=== PATIENT | female | born 1945 | race Caucasian/White ===

== ENCOUNTER → 2023-05-21 10:09 | Outpatient (REF) | payer MEDICARE, OTHER, SELFPAY ==
[2023-05-21 11:22] LABS: % Eosinophils 4.9 % (0-6); % Immature Granulocytes 0.3 % (0-0.5); % Lymphocytes 27.8 % (20.5-51.1); % Monocytes 9.9 % (1.7-9.3); % Neutrophils 56.1 % (42.2-75.2); Absolute Basophils 0.1 10^3/uL (0-0.2); Absolute Eosinophils 0.3 10^3/uL (0-0.7); Absolute Lymphocytes 1.6 10^3/uL (1.2-3.4); Absolute Monocytes 0.6 10^3/uL (0.1-0.6); Absolute Neutrophils 3.3 10^3/uL (1.4-6.5); Hematocrit 38.6 % (37.0-47.0); Hemoglobin 13.1 g/dL (12.0-16.0); Mean Corp Hgb Conc. 33.9 g/dL (33.0-37.0); Mean Corpuscular Hgb 29.8 pg (27.0-31.0); Mean Corpuscular Volume 87.9 fL (81.0-99.0); Mean Platelet Volume 10.2 fL (7.4-10.4); Nucleated Red Blood Cells % 0 %; Platelet Count 297 10^3/uL (130-400); Red Blood Cell Count 4.39 10^6/uL (4.20-5.40); Red Cell Dist. Width 12.8 % (11.5-14.5); White Blood Cell Count 5.9 10^3/uL (4.8-10.8)
[2023-05-21 12:34] LABS: ALT (SGPT) 15 U/L (0-35); AST (SGOT) 25 U/L (14-36); Albumin 4.3 g/dl (3.5-5.0); Alkaline Phosphatase 98 U/L (38-126); Blood Urea Nitrogen 19 mg/dl (7-17); Calcium 10.1 mg/dl (8.4-10.2); Carbon Dioxide 29 mmol/L (22-30); Chloride 99 mmol/L (98-107); Glucose 89 mg/dl (70-99); HDL Cholesterol 68 mg/dl; LDL Cholesterol, Calculated 88 mg/dl; Sodium 134 mmol/L (135-145); Total Bilirubin 0.7 mg/dl (0.2-1.3); Total Cholesterol 170 mg/dl (50-199); Total Protein 7.1 g/dl (6.3-8.2); Triglyceride 72 mg/dl (10-149); Very Low Density Lipoprotein 14 mg/dl (0-30); eGFR > 60.00
[2023-05-21 12:41] LABS: TSH 7.08 uIU/ml (0.47-4.68)
== END ==
LOC: REG 10:09
PROVIDERS: ATTENDING PHYSICIAN Internal Medicine
DX: E03.9 Hypothyroidism, unspecified (principal); I35.0 Nonrheumatic aortic (valve) stenosis; R53.83 Other fatigue; E78.5 Hyperlipidemia, unspecified; I35.1 Nonrheumatic aortic (valve) insufficiency; Z00.00 Encounter for general adult medical examination without abnormal findings; I10 Essential (primary) hypertension
CPT/HCPCS: 36415; 80053; 80061; 84443; 85025

== ENCOUNTER → 2023-09-23 11:03 | Outpatient (REF) | payer MEDICARE, OTHER, SELFPAY | LOC: REG 11:03 | PROVIDERS: ATTENDING PHYSICIAN Internal Medicine | DX: R79.89 Other specified abnormal findings of blood chemistry (principal); E03.9 Hypothyroidism, unspecified | CPT/HCPCS: 36415; 84443 ==

== ENCOUNTER → 2024-04-02 12:38 | Outpatient (REF) | payer MEDICARE, OTHER, SELFPAY ==
[2024-04-02 13:11] LABS: % Basophils 0.4 % (0-2); % Eosinophils 0.3 % (0-6); % Immature Granulocytes 0.3 % (0-0.5); % Lymphocytes 14.5 % (20.5-51.1); % Monocytes 12.1 % (1.7-9.3); % Neutrophils 72.4 % (42.2-75.2); Absolute Lymphocytes 1.1 10^3/uL (1.2-3.4); Absolute Monocytes 0.9 10^3/uL (0.1-0.6); Absolute Neutrophils 5.5 10^3/uL (1.4-6.5); Hemoglobin 12.4 g/dL (12.0-16.0); Mean Corp Hgb Conc. 33.5 g/dL (33.0-37.0); Mean Corpuscular Hgb 29.3 pg (27.0-31.0); Mean Corpuscular Volume 87.5 fL (81.0-99.0); Mean Platelet Volume 9.7 fL (7.4-10.4); Nucleated Red Blood Cells % 0 %; Platelet Count 368 10^3/uL (130-400); Red Blood Cell Count 4.23 10^6/uL (4.20-5.40); White Blood Cell Count 7.6 10^3/uL (4.8-10.8)
[2024-04-02 13:36] LABS: D-Dimer 1.33 ug/mlFEU (0.00-0.50)
[2024-04-02 13:41] LABS: Troponin I < 0.012 ng/ml
== END ==
LOC: RAD 12:38
PROVIDERS: ATTENDING PHYSICIAN Hospitalist; FAMILY PHYSICIAN Internal Medicine
DX: R05.3 Chronic cough (principal); M79.601 Pain in right arm; D68.51 Activated protein C resistance
CPT/HCPCS: 36415; 71046; 84484; 85025; 85379

== ENCOUNTER → 2024-07-15 10:56 | Outpatient (REF) | payer MEDICARE, OTHER, SELFPAY | LOC: RCS 10:56 | PROVIDERS: ATTENDING PHYSICIAN Internal Medicine Cardiovascular Disease; FAMILY PHYSICIAN Internal Medicine | DX: I35.0 Nonrheumatic aortic (valve) stenosis (principal) | CPT/HCPCS: 93306 ==

== ENCOUNTER → 2024-08-20 10:25 | Outpatient (REF) | payer MEDICARE, OTHER, SELFPAY ==
[2024-08-20 10:57] LABS: % Basophils 0.8 % (0-2); % Eosinophils 3.1 % (0-6); % Immature Granulocytes 0.7 % (0-0.5); % Lymphocytes 20.8 % (20.5-51.1); % Monocytes 8.8 % (1.7-9.3); % Neutrophils 65.8 % (42.2-75.2); Absolute Basophils 0.1 10^3/uL (0-0.2); Absolute Eosinophils 0.2 10^3/uL (0-0.7); Absolute Immature Granulocytes 0.1 10^3/uL (0-0.05); Absolute Lymphocytes 1.6 10^3/uL (1.2-3.4); Absolute Monocytes 0.7 10^3/uL (0.1-0.6); Hemoglobin 13.4 g/dL (12.0-16.0); Mean Corp Hgb Conc. 33.5 g/dL (33.0-37.0); Mean Corpuscular Hgb 29.6 pg (27.0-31.0); Mean Corpuscular Volume 88.3 fL (81.0-99.0); Nucleated Red Blood Cells % 0 %; Platelet Count 269 10^3/uL (130-400); Red Blood Cell Count 4.53 10^6/uL (4.20-5.40); White Blood Cell Count 7.5 10^3/uL (4.8-10.8)
[2024-08-20 11:35] LABS: ALT (SGPT) 22 U/L (0-35); AST (SGOT) 23 U/L (14-36); Albumin 4.3 g/dl (3.5-5.0); Alkaline Phosphatase 94 U/L (38-126); Blood Urea Nitrogen 21 mg/dl (7-17); Calcium 10.1 mg/dl (8.4-10.2); Carbon Dioxide 29 mmol/L (22-30); Chloride 101 mmol/L (98-107); Glucose 96 mg/dl (70-99); HDL Cholesterol 78 mg/dl; LDL Cholesterol, Calculated 104 mg/dl; Sodium 136 mmol/L (135-145); Total Bilirubin 0.6 mg/dl (0.2-1.3); Total Cholesterol 194 mg/dl (50-199); Triglyceride 60 mg/dl (10-149); Very Low Density Lipoprotein 12 mg/dl (0-30); eGFR > 60.00
== END ==
LOC: REG 10:25
PROVIDERS: ATTENDING PHYSICIAN Internal Medicine
DX: I10 Essential (primary) hypertension (principal)
CPT/HCPCS: 36415; 80053; 80061; 84443; 85025

== ENCOUNTER → 2024-09-01 11:57 | Outpatient (REF) | payer MEDICARE, OTHER, SELFPAY | LOC: RCS 11:57 | PROVIDERS: ATTENDING PHYSICIAN Student in an Organized Health Care Education/Training Program; FAMILY PHYSICIAN Internal Medicine | DX: I25.10 Atherosclerotic heart disease of native coronary artery without angina pectoris (principal) | CPT/HCPCS: 78452; 93017; A9500 ==

== ENCOUNTER → 2024-09-30 11:01 | Outpatient (REF) | payer MEDICARE, OTHER, SELFPAY ==
[2024-09-30 13:42] LABS: TSH 21.90 uIU/ml (0.47-4.68)
== END ==
LOC: REG 11:01
PROVIDERS: ATTENDING PHYSICIAN Internal Medicine
DX: E03.9 Hypothyroidism, unspecified (principal)
CPT/HCPCS: 36415; 84443

== ENCOUNTER → 2024-11-19 11:40 | Outpatient (REF) | payer MEDICARE, OTHER, SELFPAY | LOC: RAD 11:40 | PROVIDERS: ATTENDING PHYSICIAN Internal Medicine Critical Care Medicine; FAMILY PHYSICIAN Internal Medicine | DX: R91.1 Solitary pulmonary nodule (principal) | CPT/HCPCS: 71250 ==

== ENCOUNTER 2024-12-23 21:53 | Emergency (ER) | payer MEDICARE, OTHER, SELFPAY ==
[2024-12-23 21:55] VITALS: BP 220/106
[2024-12-23 22:09] VITALS: BP 189/93
[2024-12-23 22:15] LABS: Hematocrit 39.3 % (37.0-47.0); Hemoglobin 13.1 g/dL (12.0-16.0); Mean Corp Hgb Conc. 33.3 g/dL (33.0-37.0); Mean Corpuscular Volume 88.1 fL (81.0-99.0); Nucleated Red Blood Cells % 0 %; Platelet Count 251 10^3/uL (130-400); Red Cell Dist. Width 12.9 % (11.5-14.5)
[2024-12-23 22:30] LABS: ALT (SGPT) 20 U/L (0-35); AST (SGOT) 23 U/L (14-36); Albumin 4.8 g/dl (3.5-5.0); Alkaline Phosphatase 99 U/L (38-126); Blood Urea Nitrogen 20 mg/dl (7-17); Calcium 10.8 mg/dl (8.4-10.2); Carbon Dioxide 31 mmol/L (22-30); Chloride 100 mmol/L (98-107); Glucose 99 mg/dl (70-99); Lipase 96 U/L (23-300); Potassium 4.0 mmol/L (3.5-5.1); Sodium 135 mmol/L (135-145); Total Protein 7.8 g/dl (6.3-8.2); eGFR > 60.00
[2024-12-23 22:39] LABS: Troponin I < 0.012 ng/ml
[2024-12-24 02:32] VITALS: BMI 24.8
[2024-12-24 02:54] LABS: D-Dimer 0.55 ug/mlFEU (0.00-0.50)
[2024-12-24 03:00] VITALS: BP 156/74
[2024-12-24 03:30] LABS: Troponin I < 0.012 ng/ml
--- NOTE | 2024-12-24 03:52 | ED.GENMED ---
History of Present Illness
General
Chief Complaint: Chest Pain
Source: patient, spouse, previous radiology exam and previous hospital records
Exam Limitations: none
Time Seen by Provider: 12/24/24 01:57
Nursing documentation reviewed up to this point in time: agreed with
History of Present Illness
History of Present Illness:
This is an 79-year-old woman with history of asthma/COPD, hypertension, hypothyroidism, GERD. She presents with complaints of sharp, stabbing chest pain that began yesterday morning. She describes the pain as lasting a second or 2 located on the
left parasternal chest region sometimes accompanied by feeling of pressure. Pain resolved throughout lunch but then returned this evening, accompanied with frequent burping. Temporarily relieved with antiacid. With return of pain tonight she
checked her blood pressure and was concerned when her blood pressure was elevated at 180/90. Due to return of chest discomfort, elevated blood pressure patient presented to the ED for further evaluation.
Patient recalls similar chest discomfort March 2024, outpatient workup included negative troponins but elevated D-dimer. At that time March 2024 patient had been recently recovering from COVID URI. Due to elevated D-dimer, CT of the chest/PE
study performed which showed no evidence of PE but noted incidental 9 mm right mid lung field nodule. She has had follow-up PET scan May of this year that showed no hypermetabolic activity. A further follow-up CT of the chest November 19, 2024
showed stable nodule but also noted distal esophagitis.
Of note patient has prior history of PE 2002, maintained on Coumadin for 3 years which was then eventually discontinued. 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 Evista has since been
discontinued.
Past History
Past History
ED Past Medical History: Asthma, COPD, GERD, HTN, Hypothyroidism and Other (Osteoporosis; PE 2002 thought to be related to Evista use. Patient has factor V Leyden deficiency trait)
ED Past Surgical History: Gynecological (Hysterectomy) and Other (Partial thyroidectomy)
Social History
Tobacco: Non-smoker
Alcohol: None
Personal:
Living: with family
Employment: Retired
Family History
Family History: Other (Father with history of factor V Leyden deficiency)
Phy Exam
Physical Exam
Physical Exam:
GENERAL: 79-year-old woman appears her stated age, awake and alert, pleasant, appears in no acute distress. is accompanying.
EYE: anicteric
NECK: Supple, nontender, no meningismus, no significant adenopathy.
ENT: oral mucosa is moist. No rhinorrhea.
CARDIAC: Regular rate and rhythm. no murmur. No rub.
LUNGS: Clear breath sounds bilaterally, no acute respiratory distress, no wheezes/rales/rhonchi
ABDOMEN: Soft, nondistended, without focal tenderness, no r/g, no cvat. normoactive BS.
NEUROLOGICAL: Alert and oriented x3, no focal neuro deficits.
SKIN: Warm and dry, normal color, skin intact. No rash.
MUSCULOSKELETAL: No C/C/E. peripheral pulses are full and equal b/l. No palpable tenderness.
PSYCH: Normal and appropriate interaction.
Scores
Heart Score for Chest Pain Patients
STEMI patient?: No
History: Slightly or Non-Suspicious
ECG: Normal
Age: >/= 65 years
Risk Factors: 1 or 2 Risk Factors
Troponin: </= Normal Limit
Heart Score for Chest Pain Patients: 3
Heart Score Risk: 2.5% MACE over next 6 weeks
Course
Orders/Labs/Results
Orders:
Orders
12/23/24 21:58
EKG [Electrocardiogram (*1)] Urgent
Reason for Study: Chest Pain
EKG- Treatment ONCE
12/23/24 22:06
CBC/With Diff [Complete Blood Count/With Diff] Urgent
CMP [Comprehensive Metabolic Panel] Urgent
Lipase Urgent
Troponin I Urgent
12/24/24 02:04
Electrocardiogram (*1) Urgent
Reason for Study: Chest Pain
EKG- Treatment ONCE
12/24/24 02:33
D-Dimer Urgent
Troponin I Urgent
12/24/24 03:59
Mag Hydrox/Al Hydrox/Simeth [Maalox] 30 ml Phenobarb/Hyoscy/Atropine/Scop [] 10 ml Viscous Lidocaine 2% [Xylocaine Viscous Cup] 10 ml PO NOW
12/24/24 04:09
Mag Hydrox/Al Hydrox/Simeth [Maalox] 30 ml .ROUTE .STK-MED ONE
Phenobarb/Hyoscy/Atropine/Scop [] 10 ml .ROUTE .STK-MED ONE
Viscous Lidocaine 2% [Xylocaine Viscous Cup] 15 ml .ROUTE .STK-MED ONE
Abnormal Lab Results
12/23/24 12/24/24
22:06 02:33
Absolute Monos (auto) 0.7 H 10^3/uL
(0.1-0.6)
D-Dimer 0.55 H ug/mlFEU
(0.00-0.50)
Carbon Dioxide 31 H mmol/L
(22-30)
BUN 20 H mg/dl
(7-17)
Calcium 10.8 H mg/dl
(8.4-10.2)
12/23/24 22:06
12/23/24 22:06
Vital Signs
Initial and Last Documented VS:
Initial Vital Signs
Temp Pulse Resp BP Pulse Ox
98.1 F 76 16 220/106 97
12/23/24 21:55 12/23/24 21:55 12/23/24 21:55 12/23/24 21:55 12/23/24 21:55
Last Documented Vital Signs
Temp Pulse Resp BP Pulse Ox
98.0 F 61 15 156/74 94
12/24/24 02:00 12/24/24 03:00 12/24/24 03:00 12/24/24 03:00 12/24/24 03:53
MDM/Problems Addressed
Differential Diagnosis Includes:
Differential diagnosis includes, in no particular order and is not limited to:
GERD
Peptic ulcer disease
ACS
Esophageal spasm
PE
Costochondritis
Aortic dissection
Pneumonia
MDM/Problems Addressed:
Acute chest pain
Elevated blood pressure
Thus far EKG is unremarkable and unchanged from previous.
Labs are unremarkable including negative troponin.
Will plan to repeat troponin along with EKG and will check D-dimer as well.
Will trial a GI cocktail for what I suspect is acid reflux.
Chronic conditions affecting care: HTN, COPD and Other (GERD; prior history of PE)
Acute Exacerbation and/or Progression of Chronic Illness: HTN and Other (GERD)
*Pulse Oximetry
SaO2: 94
Oxygen Mode of Delivery: Room air
Patient hypoxic: no
*EKG
Interpreted by ED Provider?: Yes
Interpretation: normal
Comparison EKG: no comparison EKG present
Rate: normal
Rhythm: sinus
[place]: normal axis
Interval: normal interval
QRS Pattern: normal QRS
Ischemia: no ischemia
*Technical Services Consultant Interpretation
Rate: normal
Interpretation: normal
Rhythm: sinus
*Critical Care Note
Total Time (30-74mins, 75-104mins- exclusive of procedures): Not Applicable
Update Note
Update Note:
04:05
Repeat troponin remains negative.
D-dimer is normal. Patient continues with intermittent brief burping but no further chest discomfort.
Requesting something for burping and will trial a GI cocktail.
Blood pressure improving currently 150 systolic.
Highly suspect burping and chest discomfort is GERD related.
Recommend increasing omeprazole 40 mg to twice daily dosing over the next 2 weeks.
Discussed importance of bland diet.
Prompt follow-up with PCP and will recommend follow-up with GI as well.
Return precautions discussed.
ED Attending Note
-
Portions of this chart may have been created with voice recognition software.� Occasional wrong word or��sound alike� substitutions may have occurred due to the inherent limitations of voice recognition software.
Discharge Plan
Departure
Patient Disposition: Home (Routine Discharge)
Date of Disposition: 12/24/24
Time of Disposition: 04:03
Patient with high blood pressure during this ER visit?: No
Condition: Good
Discharge Problem:
Acute GERD
Instructions: Acid Reflux and GERD in Adults (DC)
Prescriptions:
No Action
diltiazem HCl [DILT-CD] 180 MG capsule,extended release 24hr
180 mg PO DAILY
levothyroxine [Synthroid] 100 MCG tablet
100 mcg PO DAILY
hydrochlorothiazide 25 MG tablet
25 mg PO DAILY
losartan [Cozaar] 100 MG tablet
100 mg PO DAILY
albuterol sulfate [Ventolin HFA] 90 MCG/PUFF HFA aerosol inhaler
1 puff inhalation Q6HPRN PRN (Reason: shortness of breath)
beclomethasone dipropionate [Qvar] 8.7 GM aerosol
1 puff inhalation BID
tramadol 50 MG tablet
50 mg PO Q6 Qty: 10 0RF
Referrals:
Alisa Mathis MD [Active, Gastroenterology] - Call in 1-3 days for appt
El Silva MD [Family Provider, Internal Medicine] - Call in 1-3 days for appt
Activity Restrictions/Additional Instructions:
Over the next 2 weeks I want you to increase omeprazole to 40 mg twice daily.
Continue bland diet, avoid caffeine, spicy or fried foods, chocolate, alcohol.
Follow-up with your primary care physician for recheck.
Due to concern for distal esophageal inflammation noted on CAT scan in November, I have concern for ongoing acid reflux and thus recommend you be evaluated by gamb cutter as well.
Interventions
Interventions:
*Risk Screen - Suicide Last Done: 12/23/24 21:55
*General Assessment Last Done: 12/23/24 21:55
*Neglect/Abuse Screening Last Done: 12/23/24 21:55
*ED- Fall Risk Assessment Last Done: 12/24/24 02:37
*ED COVID-19 Vaccine History Last Done: 12/24/24 02:37
*ED Influenza Vaccine History Last Done: 12/24/24 02:37
*Nursing Disposition Last Done: 12/24/24 04:23
ED- Cardiac Assessment Last Done: 12/24/24 02:37
Discharge Date and Time
Discharge Date/Time: 12/24/24 04:24
Print Language: GAMBIAN
[2024-12-24] MEDS: MAALOX 50 PO (04:11)
== END 2024-12-24 04:24 | disposition home or self-care (01) ==
LOC: EMR 21:53
PROVIDERS: Student in an Organized Health Care Education/Training Program; EMERGENCY PHYSICIAN Emergency Medicine; FAMILY PHYSICIAN Internal Medicine
DX: K21.9 Gastro-esophageal reflux disease without esophagitis (principal); I10 Essential (primary) hypertension; J44.89 Other specified chronic obstructive pulmonary disease; E89.0 Postprocedural hypothyroidism; M81.0 Age-related osteoporosis without current pathological fracture; Z86.711 Personal history of pulmonary embolism; Z86.16 Personal history of COVID-19
CPT/HCPCS: 99284; 80053; 83690; 84484; 85025; 85379; 93005

== ENCOUNTER → 2025-01-27 09:32 | Outpatient (REF) | payer MEDICARE, OTHER, SELFPAY ==
[2025-01-27 10:27] LABS: Hematocrit 38.6 % (37.0-47.0); Hemoglobin 12.4 g/dL (12.0-16.0); Mean Corp Hgb Conc. 32.1 g/dL (33.0-37.0); Mean Corpuscular Volume 91.0 fL (81.0-99.0); Nucleated Red Blood Cells % 0 %; Platelet Count 257 10^3/uL (130-400); Red Cell Dist. Width 13.1 % (11.5-14.5)
[2025-01-27 11:00] LABS: ALT (SGPT) 16 U/L (0-35); AST (SGOT) 19 U/L (14-36); Albumin 4.0 g/dl (3.5-5.0); Alkaline Phosphatase 84 U/L (38-126); Blood Urea Nitrogen 22 mg/dl (7-17); Calcium 10.0 mg/dl (8.4-10.2); Carbon Dioxide 32 mmol/L (22-30); Chloride 104 mmol/L (98-107); Glucose 91 mg/dl (70-99); HDL Cholesterol 62 mg/dl; LDL Cholesterol, Calculated 100 mg/dl; Potassium 3.6 mmol/L (3.5-5.1); Sodium 138 mmol/L (135-145); Total Protein 6.9 g/dl (6.3-8.2); Very Low Density Lipoprotein 14 mg/dl (0-30); eGFR > 60.00
[2025-01-27 11:22] LABS: TSH 0.87 uIU/ml (0.47-4.68)
== END ==
LOC: REG 09:32
PROVIDERS: ATTENDING PHYSICIAN Internal Medicine
DX: E78.5 Hyperlipidemia, unspecified (principal); I10 Essential (primary) hypertension; R53.83 Other fatigue; Z00.00 Encounter for general adult medical examination without abnormal findings
CPT/HCPCS: 36415; 80053; 80061; 84443; 85025

== ENCOUNTER → 2025-03-04 10:27 | Outpatient (REF) | payer MEDICARE, OTHER, SELFPAY ==
[2025-03-04 16:44] LABS: Lyme Antibody Screen, EIA Negative (Negative)
== END ==
LOC: REG 10:27
PROVIDERS: ATTENDING PHYSICIAN Internal Medicine
DX: S20.96XA Insect bite (nonvenomous) of unspecified parts of thorax, initial encounter (principal)
CPT/HCPCS: 36415; 86618